=== PATIENT | male | born 1985 | race Caucasian/White ===

== ENCOUNTER 2018-12-19 21:15 | Emergency (ER) | payer MEDICAID ==
[~2018-12-19] VITALS: Ht 170.2 cm; Wt 82.0 kg
[2018-12-20 02:29] VITALS: BP 120/80
== END 2018-12-20 02:46 | disposition home or self-care (01) ==
LOC: ER 21:15
DX: R21 Rash and other nonspecific skin eruption (principal)
CPT/HCPCS: 86592; 99283